=== PATIENT | male | born 2000 | race Caucasian/White ===

== ENCOUNTER 2019-08-17 18:56 | Emergency (ER) | payer MEDICAID, SELFPAY ==
[2019-08-17 19:02] VITALS: BP 134/73; PULSE 74; RESP 18; TEMP 36.4; O2SAT 97
--- NOTE | 2019-08-17 19:12 | ED.GENADUL_ITS ---
Discharge Plan Disposition Patient Disposition: HOME Condition: Stable Discharge Details Chief Complaint: ThroatFB Clinical Impression: Abrasion of esophagus Primary Care Provider: Niru Conti V ED Provider: Farhad Schreiber Discharge Instructions Additional Instructions: Return if you develop swelling, difficulty breathing, difficulty swallowing, or any other acute concerns. Home to rest this evening. Small, frequent sips of fluids. Please observe a soft diet and then may slowly advance as tolerated. Medical Decision Making 19-year-old male who felt a Nigerian avery get stuck in his right throat while eati ng dinner this evening. No choking, no vomiting, no difficulty breathing. Swallowing secretions and with normal speech. He has normal vital signs, his exam is unremarkable. Likely he has an upper esophageal abrasion from food. No true impaction or obstruction. Patient given Mylanta and counseled on anticipated course of resolution. He is stable for discharge to home. HPI General Mode of arrival: ambulatory . Date/Time Provider Initiated Documentation: 08/17/19 19:01 . Limitations to Documentation: no limitations . Information obtained by: patient . History of Present Illness 19 year old M presents to the emergency department with the chief complaint of Foreign body sensation after eating Nigerian fries, described as mild, Quality is described as dull, and is localized to the mouth and right. Patient reports no radiation. Patient started experiencing this minute(s) and it has been constant. No relieving factors improve symptom(s), No exacerbating factors reported . Patient notes denies chest pain, cough, nausea/vomiting and shortness of breath. Patient did receive the following treatments prior to arrival, none Related Data Allergies Allergy/AdvReac Type Severity Reaction Status Date / Time No Known Allergies Allergy Unverified 08/17/19 19:08 General Stated Complaint: ThroatFB ROBERT: 3 Review of Systems Narrative: 6 systems reviewed and otherwise negative [facility] Social History Smoking/Tobacco Use Status: Current every day Tobacco Type: e-cigarettes Drug use: Never Substance use type: does not use Exam Narrative Exam Narrative: GEN: awake, alert, oriented 3. Pleasant, well groomed, interactive. HEAD: Normocephalic, atraumatic ENT: Mucous membranes moist, oropharynx unremarkable and there is no evidence of foreign body, swelling, asymmetry. External ear exam unremarkable EYES: PERRL, EOMI NECK: Full ROM, no SULMA, no menigismus CHEST/RESP: Nontender, clear to auscultation bilateral, no wheeze/rhonchi/rales CARDIOVASCULAR: RRR, no murmur, rub lizbeth. 2+ Rad pulse bilateral ABDOMEN: Soft, nontender, no mass. +Bowel sounds EXT: Full ROM, no edema, no rash Neuro: Grossly normal neurologic exam, conversant, interactive. Psych: Speech fluent, thoughts congruent, affect normal Course Vital Signs Vital signs: Vital Signs Temperature 36.4 C L 08/17/19 19:02 Pulse 74 08/17/19 19:02 Respiratory Rate 18 08/17/19 19:02 Blood Pressure 134/73 08/17/19 19:02 Pulse Oximetry 97 08/17/19 19:02 Temperature 36.4 C L 08/17/19 19:02 Temperature Source Temporal Artery Scan 08/17/19 19:02 Pulse 74 08/17/19 19:02 Respiratory Rate 18 08/17/19 19:02 Respiratory Effort 08/17/19 19:06 Respiratory Pattern Normal 08/17/19 19:06 Blood Pressure 134/73 08/17/19 19:02 Blood Pressure Position Sitting 08/17/19 19:02 Pulse Oximetry 97 08/17/19 19:02 Oxygen Delivery Method Room Air 08/17/19 19:02 Oxygen Flow Rate 0 08/17/19 19:02 Pain Level 0 08/17/19 19:02
== END 2019-08-17 19:50 | disposition home or self-care (01) ==
PROVIDERS: Emergency Provider Emergency Medicine; PCP Family Medicine
DX: S27.818A Other injury of esophagus (thoracic part), initial encounter (principal); X58.XXXA Exposure to other specified factors, initial encounter
CPT/HCPCS: 99283

== ENCOUNTER 2019-09-21 15:33 | Emergency (ER) | payer MEDICAID, SELFPAY ==
[2019-09-21 15:35] VITALS: BP 116/69; PULSE 81
[2019-09-21 15:36] VITALS: BP 116/69; PULSE 89; RESP 16; TEMP 36.9; O2SAT 100
[2019-09-21] MEDS: Ondansetron O.D.T. 4 MG TABEF (15:55)
--- NOTE | 2019-09-21 16:25 | ED.GENADUL_ITS ---
Discharge Plan Disposition Patient Disposition: HOME Condition: Good Discharge Details Chief Complaint: RespSymp Clinical Impression: Sensation of foreign body in esophagus Primary Care Provider: Niru Conti V ED Provider: Yoana Kurtz Home Meds and New Rx's Prescriptions: No Action No Known Home Meds RF: 0 Discharge Instructions Instructions: Esophageal Foreign Body (ED), Food Impaction (ED) Additional Instructions: Your neck x-ray was negative for foreign body. It did note some mild swelling near your throat which may be due to irritation and vomiting. The steroid dose you were given today will help with swelling. Alternate Tylenol and Motrin as needed and directed for pain. Avoid hot fluids and foods over the next few days which may increase swelling and irritation. Follow a diet of cool soft foods and liquids over the next few days if symptoms still present. Follow-up with your primary care doctor within the next week for reevaluation. Return to the emergency department if you develop any worsening or new concerning symptoms. Discharge Data Discharge Date/Time-TO BE ENTERED AT DEPARTURE: 09/21/19 18:20 Discharge Physician: Yoana Kurtz Medical Decision Making 1545 -- 19-year-old male presents for sensation of food stuck in throat after choking on a Iranian avery at home prior to arrival. Patient states he likely put to any fries in his mouth at one time and choked on 1 or 2. He states he still has a sensation that there is a small piece of Iranian fries stuck in the back of his throat. Patient speaking in full sentences on arrival. Hemodynamically stable. Patient is spitting up white mucus into a vomitus bag. Posterior pharynx appears irritated but not infectious without exudates, tonsillar edema or mass. Lungs clear. Abdomen soft and nontender. Patient was seen here last month for similar episode and given Mylanta and symp toms improved. 165 --patient reassessed --patient given Zofran and easy gas fizzy solution, 2 GI cocktails and denied any relief. Patient vomited food up onto the floor. Patient states he is vomiting due to sensation of food stuck in the back of his throat. Will obtain a soft tissue neck x-ray and give a dose of Compazine. 1800 --patient reassessed --patient feels much better, states sensation in throat has significantly improved. He was able to drink and eat and no further vomiting or sore throat. He is speaking in full sentences. X-ray negative for foreign body but did note mild prominence of aryepiglottic folds that may represent edema. It is possible from patient's straining and dry heaving there may be some edema. He was given a dose of 10 mg Decadron p.o. He was advised to avoid hot foods and liquids and to mainly follow diet of cool soft foods and liquids over the next few days. Advised to follow-up with the primary care doctor for reevaluation and for referral to surgery for endoscopy if symptoms persist. He was advised to return here at any time with any worsening or new concerning symptoms. Medical Records Medical records reviewed: Yes I reviewed the patient's medical records. Imaging Data Radiologic Study: Radiologist's impression: XR Soft Tissue Neck Exam date and time: 09/21/2019 5:14 PM Age: 19 years old Clinical history: Painful swallowing TECHNIQUE: Imaging protocol: XR of the soft tissues of the neck. COMPARISON: No relevant prior studies available. FINDINGS: Airway: Normal. No abnormal narrowing. Soft tissues: No prevertebral soft tissue swelling. The epiglottis is normal. There is mild prominence of the aryepiglottic folds back might represent edema. Bones/joints: Unremarkable. IMPRESSION: There is mild prominence of the aryepiglottic folds that might represent edema. Clinical correlation is required. HPI General Date/Time Provider Initiated Documentation: 09/21/19 15:44 . History of Present Illness 19 year old M presents to the emergency department with the chief complaint of sensation of food stuck after choking on zambian avery, Patient sta rted experiencing this hour(s) (1) and it has been constant. No relieving factors improve symptom(s), No exacerbating factors reported . Patient notes no other symptoms.. Patient did receive the following treatments prior to arrival, none Related Data Home Medications Medication Instructions Recorded Confirmed Unknown [No Known Home Meds] 09/21/19 09/21/19 Allergies Allergy/AdvReac Type Severity Reaction Status Date / Time No Known Allergies Allergy Unverified 09/21/19 15:38 General Stated Complaint: RespSymp ROBERT: 4 Review of Systems All systems reviewed & are unremarkable except as noted in HPI and below Constitutional Constitutional: Reports as per HPI, Denies chills and Denies fever(s) Eyes Eyes: Denies blurry vision ENT Ears, Nose, Mouth, and Throat: Denies dizziness, Denies sore throat and Denies throat swelling Cardiovascular Cardiovascular: Denies chest pain and Denies dyspnea Respiratory Respiratory: Denies cough and Denies dyspnea Gastrointestinal Gastrointestinal: Denies abdominal pain, Denies diarrhea and Denies vomiting Genitourinary Genitourinary: Denies hematuria and Denies dysuria Musculoskeletal Musculoskeletal: Denies back pain and Denies numbness Integumentary/Breasts Skin/Breast: Denies lesions and Denies rash Neurologic Neurologic: Denies dizziness, Denies focal weakness and Denies numbness Allergic/Immunologic Allergic/Immunologic: Denies throat swelling [facility] Medical History No significant past medical history (Acute) Surgical History History of tonsillectomy (Chronic) Social History Smoking/Tobacco Use Status: Current every day Tobacco Type: e-cigarettes Drug use: Never Substance use type: does not use Do you feel safe at home: Yes Do you feel safe in your relationship?: Yes Exam Const General: cooperative, healthy appearing and no acute distress HENMT Head: normal to inspection Ears: hearing grossly normal bilaterally, external ears normal and TM's normal bilaterally General nose exam: external nose normal Face and sinus: normal facial exam Mouth: oral mucosae normal Throat: other (appears irritated, mildly erythematous; no exudates, foreign body, abscess) Eyes General: appearance normal, both eyes and all related structures Pupils: PERRL EOM: EOM intact bilaterally Neck Neck: normal visual inspection and No submandibular swelling Lymphatic: no lymphadenopathy noted Chest Chest: normal inspection of the chest and no tenderness Resp Effort & Inspection: normal respiratory effort and able to speak in complete sentences Auscultation: clear to auscultation bilaterally Cardio Rate: regular rate Rhythm: regular rhythm GI Inspection: normal to inspection Palpation: soft, not firm, not rigid and nontender Auscultation: normal bowel sounds Skin General skin exam: no rashes or lesions noted Neuro General: alert, awake and oriented x3 Cognition: normal cognition Speech: speech normal Motor: muscle tone normal throughout Sensory Exam: no sensory deficits noted Extrem General: normal to inspection, full ROM, normal capillary refill, no calf tenderness bilaterally and no edema Psych Appearance: grossly normal Mental Status: mental status grossly normal Speech and Movement: speech and movement normal Affect: normal affect Course Vital Signs Vital signs: Vital Signs Temperature 98.4 F 09/21/19 15:36 Pulse 89 09/21/19 15:36 Respiratory Rate 16 09/21/19 15:36 Blood Pressure 116/69 09/21/19 15:36 Pulse Oximetry 100 09/21/19 15:36 Temperature 98.4 F 09/21/19 15:36 Temperature Source Temporal Artery Scan 09/21/19 15:36 Pulse 89 09/21/19 15:36 Respiratory Rate 16 09/21/19 15:36 Respiratory Effort Non-Labored 09/21/19 15:36 Respiratory Depth Normal 09/21/19 15:36 Blood Pressure 116/69 09/21/19 15:36 Blood Pressure Position Sitting 09/21/19 15:36 Pulse Oximetry 100 09/21/19 15:36 Oxygen Delivery Method Room Air 09/21/19 15:36 Oxygen Flow Rate 0 09/21/19 15:36 Pain Level 0 09/21/19 15:36
[2019-09-21] MEDS: Lidocaine 2% Viscous 15 ML CUP ×2 (16:34→16:41)
[2019-09-21] MEDS: Mylanta Suspension 30 ML CUP ×2 (16:35→16:41)
--- NOTE | 2019-09-21 16:37 | NUR.NOTE ---
Nursing Note: family and s/o at bedside.
--- NOTE | 2019-09-21 16:41 | NUR.NOTE ---
Nursing Note: pt vomited gi cocktail immediately after taking it. md in room for reeval.verbal order to give a second dosage of the gi cocktail.
[2019-09-21] MEDS: Prochlorperazine 10 MG TAB (17:03)
--- NOTE | 2019-09-21 17:06 | DI.RAD_ITS ---
EXAM: XR SOFT TISSUE NECK INDICATION: r/o food bolus in throat,SENSATION OF FOOD STUCK IN BACK OF THROAT COMPARISON: No exams were available for comparison TECHNIQUE: 2D digital imaging was performed. FINDINGS: The airway appears intact throughout. There is no prevertebral soft tissue swelling. The epiglottis appears normal. No foreign body is seen. No bony abnormalities are identified. The visualized por tions of the lungs appear clear. IMPRESSION: Negative soft tissue neck.
--- NOTE | 2019-09-21 18:01 | DI.VRAD_ITS ---
PROCEDURE INFORMATION: Exam: XR Soft Tissue Neck Exam date and time: 09/21/2019 5:14 PM Age: 19 years old Clinical history: Painful swallowing TECHNIQUE: Imaging protocol: XR of the soft tissues of the neck. COMPARISON: No relevant prior studies available. FINDINGS: Airway: Normal. No abnormal narrowing. Soft tissues: No prevertebral soft tissue swelling. The epiglottis is normal. There is mild prominence of the aryepiglottic folds back might represent edema. Bones/joints: Unremarkable. IMPRESSION: There is mild prominence of the aryepiglottic folds that might represent edema. Clinical correlation is required. Dictated and Authenticated by: Juan Santo MD. Ordering:HAO Lees MD
[2019-09-21] MEDS: Dexamethasone 10 MG/ML VIAL PO (18:10)
[2019-09-21 18:11] VITALS: O2SAT 99
[2019-09-21 18:12] VITALS: BP 105/62; O2SAT 97
[2019-09-21 18:15] VITALS: BP 115/64; PULSE 65; O2SAT 98
== END 2019-09-21 18:20 | disposition home or self-care (01) ==
PROVIDERS: Emergency Provider Physician Assistant; PCP Family Medicine
DX: R09.89 Other specified symptoms and signs involving the circulatory and respiratory systems (principal)
CPT/HCPCS: 99284; 70360; 99283; J1100

== ENCOUNTER 2020-11-04 15:05 | Emergency (ER) | payer MEDICAID, SELFPAY ==
[2020-11-04 15:12] VITALS: BP 127/72; PULSE 97; RESP 18; TEMP 36.7; O2SAT 100
--- NOTE | 2020-11-04 15:32 | ED.GENADUL_ITS ---
Discharge Plan Discharge Details Chief Complaint: Abd Prob Primary Care Provider: Niru Conti V ED Provider: Angel Ronquillo Home Meds and New Rx's Prescriptions: No Action No Known Home Meds RF: 0 HPI General Mode of arrival: ambulatory . Date/Time Provider Initiated Documentation: 11/04/20 15:18 . Limitations to Documentation: no limitations . Information obtained by: patient . Related Data Home Medications Medication Instructions Recorded Confirmed Unknown [No Known Home Meds] 09/21/19 09/21/19 Allergies Allergy/AdvReac Type Severity Reaction Status Date / Time No Known Allergies Allergy Unverified 11/04/20 15:18 General Stated Complaint: Abd Prob ROBERT: 3 PFSH Medical History No significant past medical history Surgical History History of tonsillectomy Social History Smoking/Tobacco Use Status: Current every day Tobacco Type: e-cigarettes Smoking risk assessment performed?: Yes Drug use: Never Substance use type: does not use Current gender identity: male Do you feel safe at home: Yes Do you feel safe in your relationship?: Yes Course Vital Signs Vital signs: Vital Signs Temperature 36.7 C 11/04/20 15:12 Pulse 97 H 11/04/20 15:12 Respiratory Rate 18 11/04/20 15:12 Blood Pressure 127/72 11/04/20 15:12 Pulse Oximetry 100 11/04/20 15:12 Temperature 36.7 C 11/04/20 15:12 Temperature Source Skin 11/04/20 15:12 Pulse 97 H 11/04/20 15:12 Respiratory Rate 18 11/04/20 15:12 Blood Pressure 127/72 11/04/20 15:12 Pulse Oximetry 100 11/04/20 15:12 Oxygen Delivery Method Room Air 11/04/20 15:12 Oxygen Flow Rate 0 11/04/20 15:12 Pain Level 3 11/04/20 15:12
--- NOTE | 2020-11-04 16:33 | ED.GENADUL_ITS ---
Discharge Plan Disposition Patient Disposition: HOME Condition: Stable Discharge Details Clinical Impression: Diarrhea Primary Care Provider: Niru Conti V ED Provider: Nica Arenas Home Meds and New Rx's Prescriptions: No Action No Known Home Meds RF: 0 Discharge Instructions Instructions: Gastroenteritis (ED), Acute Diarrhea (ED) Additional Instructions: Follow up with primary care provider in 2-3 days. Return to ED sooner if any worsening or concerns. Increase oral fluids. Return to the ED for any worsening pain continue blood in the stool. Fever or vomiting. Worsened dizziness or any concerns. Your labs today are within normal limits no concerning signs for too much blood loss. Stool sample obtained today was negative for any blood. If you have more than 7 episodes of diarrhea a day he can take Imodium. Stand Alone Forms: Work Release Referrals: Niru Conti MD [Primary Care Provider] - Discharge Data Discharge Date/Time-TO BE ENTERED AT DEPARTURE: 11/04/20 18:07 Medical Decision Making 20-year-old male presents to the ER with bilateral lower abdominal cramping and diarrhea which began yesterday. Had a total of 3 episodes of diarrhea with bright red blood noted. He also reports dizziness. Denies any problems urinating. No vomiting. Work-up ordered including CBC, CMP, PT and APTT all within normal limits. Hemoglobin hematocrit is within normal limits at 15.9 and 46.3 patient remained hemodynamically stable alert and oriented. Discussed lab results with patient and discussed strict return instructions, verbalized understanding. He does have an upcoming primary care appointment on Monday which I encouraged him to keep this. At this time patient is stable for discharge home. This text was generated using [employer] system, please disregard any oddities of phrase or misspellings. HPI General Date/Time Provider Initiated Documentation: 11/04/20 15:18 . HPI Narrative: 20-year-old male presents to the ER with bilateral lower abdominal cramping and diarrhea which began yesterday. Had a total of 3 episodes of diarrhea with bright red blood noted. He also reports dizziness. Denies any problems urinating. No vomiting. Related Data Home Medications Medication Instructions Recorded Confirmed Unknown [No Known Home Meds] 09/21/19 09/21/19 Allergies Allergy/AdvReac Type Severity Reaction Status Date / Time No Known Allergies Allergy Unverified 11/04/20 15:18 General Stated Complaint: Abd Prob ROBERT: 3 Review of Systems Narrative: Constitutional: Negative for weight loss, alert and oriented, well groomed, normal body habitus, appears comfortable. HEENT: Denies trauma, headaches, blurry vision, nasal discharge, sore throat, trouble swallowing. Chest: Denies chest pain, palpitations, irregular rhythm, hypertension. Respiratory: Denies Shortness of breath, cough, hemoptysis. GI: Denies , nausea, vomiting, constipation. Positive bilateral abdominal cramping intermittent, positive diarrhea, : Denies dysuria, hematuria, flank pain, positive bright red blood with stools x3. Neuro: Denies blurry vision, weakness, syncope, headache or facial numbness. Hematologic: Denies easy bruising, intolerance to heat or cold, hair loss. [facility] Medical History No significant past medical history Surgical History History of tonsillectomy Social History Smoking/Tobacco Use Status: Current every day Tobacco Type: e-cigarettes Smoking risk assessment performed?: Yes Drug use: Never Substance use type: does not use Current gender identity: male Do you feel safe at home: Yes Do you feel safe in your relationship?: Yes Exam Narrative Exam Narrative: Constitutional: Alert and oriented x3. Appears stated age. Normal body habitus. Head: Normocephalic, no trauma. Eyes: Pupils PERRLA, Red reflex noted, EOM's intact. Eyelids symmetrical without lesions, discharge, or swelling. ENT: Bilateral TM's WNL, External ear normal to inspection, no mastoid TTP, swelling, or erythema, Nasal turbinates WNL, no nasal discharge. Normal dentition, Posterior pharynx WNL, no exudate. Chest: RRR, Normal S1, S2, distal pulses intact. Resp: Lungs clear to auscultation bilaterally, no wheezes, rales, or rhonchi. Abdomen: Soft, nondistended nontender to palpation all 4 quadrants. Rectal exam: Mildly tender, no hemorrhoids visualized or palpated. Guaiac negative as noted in procedure note. Musculoskeletal: Normal gait, 5/5 strength to all four extremities. Skin: No suspicious rashes or lesions. Capillary refill less than 2 sec. Neurologic: Cranial nerves II-XII intact. Alert and oriented x 3. DTR's intact. Hematologic/Lymphatic: No ecchymosis, no lymphadenopathy. Course Vital Signs Vital signs: Vital Signs Temperature 36.7 C 11/04/20 15:12 Pulse 97 H 11/04/20 15:12 Respiratory Rate 18 11/04/20 15:12 Blood Pressure 127/72 11/04/20 15:12 Pulse Oximetry 100 11/04/20 15:12 Temperature 36.7 C 11/04/20 15:12 Temperature Source Skin 11/04/20 15:12 Pulse 97 H 11/04/20 15:12 Respiratory Rate 18 11/04/20 15:12 Blood Pressure 127/72 11/04/20 15:12 Pulse Oximetry 100 11/04/20 15:12 Oxygen Delivery Method Room Air 11/04/20 15:12 Oxygen Flow Rate 0 11/04/20 15:12 Pain Level 3 11/04/20 15:12 Procedures Stool Hemoccult Procedural Steps Taken: stool placed in appropriate test area, developer placed on stool and control areas and controls appropriately positive and negative Hemoccult result: negative
[2020-11-04 17:17] LABS: Abs Immature Grans 0.01 10^3/uL (0.0-0.06); Absolute Basophil Count 0.01 10^3/uL (0.0-0.2); Absolute Eosinophil Count 0.05 10^3/uL (0.0-0.7); Absolute Lymphocyte Count 1.29 10^3/uL (1.2-3.4); Absolute Monocyte Count 0.42 10^3/uL (0.1-0.8); Absolute Neutrophil Count 4.34 10^3/uL (1.2-6.7); Basophils % 0.2; Eosinophils % 0.8; HCT 46.3 % (40.0-50.0); HGB 15.9 g/dL (13.5-17.5); Immature Grans % 0.2; Lymphocytes % 21.1; MCH 31.7 pg (27.0-33.0); MCHC 34.3 % (32.0-36.0); MCV 92.4 fL (80-95); MPV 9.1 fL (8.0-11.0); Monocytes % 6.9; Neutrophils % 70.8; Nucleated RBC 0 %; Platelet Count 304 10^3/uL (130-400); RBC 5.01 10^6/uL (4.36-5.78); RDW 11.6 % (11.8-14.1); RDW-SD 39.2 fL; WBC 6.12 10^3/uL (4.4-10.8)
[2020-11-04 17:20] LABS: INR 1.1 (0.9-1.1); PTT Activated 23.9 sec (21.0-27.5); Prothrombin Time 11.3 sec (9.3-11.0)
[2020-11-04 17:22] LABS: ALT 17 U/L (16-63); AST 11 U/L (15-37); Albumin 4.7 g/dL (3.4-5.0); Alkaline Phosphatase 48 U/L (46-116); Anion Gap 4.9 mmol/L (3-11); BUN 14 mg/dL (7-18); Bilirubin, Total 0.9 mg/dL (0.2-1.0); CO2 29.1 mmol/L (21.0-32.0); CREATININE 1.02 mg/dL (0.70-1.30); Chloride 103 mmol/L (98-107); Glucose 92 mg/dL (74-106); Potassium 4.5 mmol/L (3.5-5.1); Sodium 137 mmol/L (136-145); Total Protein 7.7 g/dL (6.4-8.2)
[2020-11-04 17:46] VITALS: BP 101/71; PULSE 65; RESP 20; TEMP 36.8; O2SAT 99
[2020-11-04 17:54] VITALS: BP 101/72; PULSE 65; RESP 20; TEMP 36.8; O2SAT 99
== END 2020-11-04 18:07 | disposition home or self-care (01) ==
PROVIDERS: Physician Assistant; Emergency Provider Registered Nurse Emergency; PCP Family Medicine
DX: R10.30 Lower abdominal pain, unspecified (principal); R19.7 Diarrhea, unspecified
CPT/HCPCS: 36415; 80053; 99283; 85025; 85610; 85730

== ENCOUNTER 2020-11-13 20:22 | Emergency (ER) | payer MEDICAID, SELFPAY ==
[2020-11-13 20:33] VITALS: BP 128/88; PULSE 93; RESP 18; TEMP 36.5; O2SAT 100
--- NOTE | 2020-11-13 20:46 | ED.GENADUL_ITS ---
Discharge Plan Disposition Patient Disposition: HOME Condition: Good Discharge Details Clinical Impression: URI (upper respiratory infection), Suspected 2019 novel coronavirus infection Primary Care Provider: Niru Conti V ED Provider: Uri Oro Home Meds and New Rx's Prescriptions: No Action No Known Home Meds RF: 0 Discharge Instructions Instructions: Upper Respiratory Infection (ED) Additional Instructions: At this time your symptoms are very concerning for coronavirus. Due to the increased likelihood of your symptoms being from coronavirus the CDC does recommend testing. It takes 48 to 72 hours for the test results to return. You will be contacted by [facility] staff when your results return. If you do not hear from them in 48 to 72 hours, please contact [facility]. Out of an abundance of precaution it is highly recommended that you self quarantine yourself for a total of 14 days or until symptom-free for greater than 24 to 48 hours. It would be prudent to wear a mask at all times, always wash your hands frequently, and follow-up closely with your primary care provider. It is recommended that you call your primary care provider prior to reassessment. If you are going to a health facility, please call/contact them before you arrive. At this time based on your current symptoms the CDC does not recommend admission, and there is no current clinical indication for your admission here at the hospital. However it is vitally important to monitor your symptoms closely, and if you notice any worsening of your symptoms, or any new symptoms such as worsening shortness of breath, difficulty breathing, persistent fever, worsening chills, chest pain, numbness, weakness, or fainting please call and then return immediately to the emergency department for reevaluation. Please call your primary care provider as soon as possible to make them aware of your current situation and for continued monitoring. As always, it was a pleasure participating in your medical care today. In addition to this, some new recommendations may suggest that taking a multivitamin, B complex vitamin, zinc supplementation, vitamin C supplementation, and melatonin supplementation may have potential limited benefit. Additionally I would recommend that you take [id number] 10 mg of loratadine every 24 hours to help with your congestion. Stand Alone Forms: PENDING COVID-19 TESTING, Work Release Medical Decision Making 20-year-old male with no significant past medical history presents today for evaluation of upper respiratory symptoms. Patient states that for last 2-1/2 days he has had a fever with a T-max of 100.9, loss of taste, mild cough, congestion, and postnasal drip. Patient does work at [employer]. He denies any other sick contacts. He does live with his elderly grandparents and was concerned that this may be Covid and came to get checked. He denies any severe shortness of breath, hemoptysis, profound neck pain or headache, chest pain, or other complaints. He denies any other modifying factors aside for slight improvement of his symptoms with DayQuil and NyQuil. No other complaints at this time. Physical exam is unremarkable. Patient has had a tonsillectomy, minimal cobblestoning the posterior pharynx. No evidence of purulent nasal discharge. Symptoms consistent with mild viral upper respiratory infection. No evidence of concerning lung sounds hypoxemia or tachypnea. No clinical indication for admission at this time. Notable concern for coronavirus given hi s symptomatology. We will do Covid testing, recommend multivitamins on an outpatient basis. Will give work note. Discussed red flags which return. I have extensively reviewed the treatment plan and discharge instructions with the patient. I have addressed all patient concerns at this time. The patient was made aware of what symptoms to monitor for that would warrant a return to the emergency department. Discussed the plan with the patient, they demonstrate verbal understanding and agreement with our assessment and plan at this time. HPI General Date/Time Provider Initiated Documentation: 11/13/20 20:24 . HPI Narrative: 20-year-old male with no significant past medical history presents today for evaluation of upper respiratory symptoms. Patient states that for last 2-1/2 days he has had a fever with a T-max of 100.9, loss of taste, mild cough, congestion, and postnasal drip. Patient does work at [employer]. He denies any other sick contacts. He does live with his elderly grandparents and was concerned that this may be Covid and came to get checked. He denies any severe shortness of breath, hemoptysis, profound neck pain or headache, chest pain, or other complaints. He denies any other modifying factors aside for slight improvement of his symptoms with DayQuil and NyQuil. No other complaints at this time. Related Data Home Medications Medication Instructions Recorded Confirmed Unknown [No Known Home Meds] 09/21/19 11/13/20 Allergies Allergy/AdvReac Type Severity Reaction Status Date / Time No Known Allergies Allergy Unverified 11/04/20 15:18 General Stated Complaint: RespSymp ROBERT: 4 Review of Systems All systems reviewed & are unremarkable except as noted in HPI and below PFSH Medical History No significant past medical history Surgical History History of tonsillectomy Social History Smoking/Tobacco Use Status: Current every day Tobacco Type: e-cigarettes Smoking risk assessment performed?: Yes Drug use: Never Substance use type: does not use Current gender identity: male Do you feel safe at home: Yes Do you feel safe in your relationship?: Yes Exam Narrative Exam Narrative: 1.Const: Well-nourished, Well-developed, appearing stated age 2.Eyes: PERRL, no conjunctival injection, and symmetrical lids. 3.ENT: Atraumatic external nose and ears. Moist MM. Neck: Symmetric, trachea midline, No thyromegaly. Post tonsillectomy. No evidence of tonsillitis or significant erythema in the posterior pharynx. Minimal cobblestoning. No nuchal rigidity or tenderness. 4.CVS: +S1/S2, No murmurs or gallops. Peripheral pulses 2+ and equal in all extremities. Brisk capillary refill in all extremities. 5.RESP: Unlabored respiratory effort. Clear to auscultation bilaterally. No wheezes rales or rhonchi 6.GI: Soft, Nontender/Nondistended, No hepatosplenomegaly. No guarding or rebound. 7.MSK: Normocephalic/Atraumatic, Extremities w/o deformity or ttp No cyanosis or clubbing, Normal movement of all extremities 8.Skin: Warm, Dry. No rashes or lesions. 9.Neuro: yield loss inspector II-XII grossly intact. Sensation grossly intact, no focal neurologic deficits. 10.Psych: (AAO) x3. Appropriate mood and affect Course Vital Signs Vital signs: Vital Signs Temperature 36.5 C 11/13/20 20:33 Pulse 93 H 11/13/20 20:33 Respiratory Rate 18 11/13/20 20:33 Blood Pressure 128/88 11/13/20 20:33 Pulse Oximetry 100 11/13/20 20:33 Temperature 36.5 C 11/13/20 20:33 Temperature Source Temporal Artery Scan 11/13/20 20:33 Pulse 93 H 11/13/20 20:33 Respiratory Rate 18 11/13/20 20:33 Respiratory Effort Non-Labored 11/13/20 20:35 Respiratory Depth Normal 11/13/20 20:35 Blood Pressure 128/88 11/13/20 20:33 Blood Pressure Position Sitting 11/13/20 20:33 Pulse Oximetry 100 11/13/20 20:33 Oxygen Delivery Method Room Air 11/13/20 20:33 Oxygen Flow Rate 0 11/13/20 20:33 Pain Level 0 11/13/20 20:33
[2020-11-15 17:04] LABS: COVID-19 RT-PCR UVMMC Result Negative (Negative)
== END 2020-11-13 21:40 | disposition home or self-care (01) ==
PROVIDERS: Emergency Provider Student in an Organized Health Care Education/Training Program; PCP Family Medicine
DX: R09.81 Nasal congestion (principal); R05 Cough; J06.9 Acute upper respiratory infection, unspecified; Z03.818 Encounter for observation for suspected exposure to other biological agents ruled out
CPT/HCPCS: 99282; U0003; 99283